=== PATIENT | male | born 1955 | race Caucasian/White ===

== ENCOUNTER → 2016-07-31 | Outpatient (CLI) | payer BC ==
[2016-07-31 12:11] LABS: ALT 41 U/L (21-72); AST 17 U/L (17-59); Alkaline Phosphatase 75 U/L (38-126); Anion Gap 12 mmol/L; Blood Urea Nitrogen 16 mg/dL (9-20); Calcium 9.8 mg/dL (8.4-10.2); Carbon Dioxide 24 mmol/L (22-30); Chloride 107 mmol/L (98-107); Cholesterol 172 mg/dL (<200); Glucose 155 mg/dL (74-99); HDL Cholesterol 57 mg/dL (40-60); Non-African American GFR(MDRD) >60 (>60 ml/min/1.73 sqM); Potassium 4.9 mmol/L (3.5-5.1); Sodium 143 mmol/L (137-145); Total Bilirubin 0.9 mg/dL (0.2-1.3); Total Protein 7.3 g/dL (6.3-8.2); Triglycerides 127 mg/dL (<150)
== END | disposition home or self-care (01) ==
LOC: LABWHC1 11:42
PROVIDERS: ATTEND Internal Medicine Endocrinology, Diabetes & Metabolism
DX: E11.65 Type 2 diabetes mellitus with hyperglycemia (principal)
CPT/HCPCS: 36415; 80053; 80061; 82043

== ENCOUNTER 2016-11-15 12:53 | Emergency (ER) | payer BC, OTHER ==
[2016-11-15 13:15] VITALS: RESP 18; TEMP 98
[2016-11-15] MEDS ORDERED: DIPH,PERTUS(ACELL)TETVAC-LF 0.5 ML VIAL IM ONE (13:25)
[2016-11-15] MEDS ORDERED: ACETAMINOPHEN TAB 325 MG TAB PO STA (13:26)
--- NOTE | 2016-11-15 13:31 | ED ---
Head Injury HPI - General Chief complaint: Head Injury Stated complaint: [facility] Head Lac Time Seen by Provider: 11/15/16 13:02 Source: patient, EMS, RN notes reviewed Mode of arrival: EMS Limitations: no limitations - History of Present Illness Initial comments: Patient is a 61-year-old male presents to the emergency room for evaluation of head injury. Patient states he was using a crank at work and it shot back and hit him on the left side of his forehead. Patient states he doesn't think he lost consciousness. Patient denies nausea. Patient denies dizziness. Patient states he is having 8 out of 10 headache. Patient states his head did begin to bleed. Patient states he's not any blood thinners. Patient states he has not had a tetanus vaccine within the last 5 years. Patient denies changes in vision. Patient denies ear pain or ringing in ears. Patient is having slight neck pain. Patient denies paresthesia in his upper extremities. Patient denies any other injuries during incident. - Related Data Home Medications Medication Instructions Recorded Confirmed Atorvastatin [Lipitor] 20 mg PO HS 11/15/16 11/15/16 Dapagliflozin Propanediol [Farxiga] 10 mg PO DAILY 11/15/16 11/15/16 amLODIPine BESYLATE/BENAZEPRIL 1 cap PO DAILY 11/15/16 11/15/16 [amLODIPine BESYLATE/BENAZEPRIL 5-10 mg] metFORMIN HCL [Metformin HCl] 1,000 mg PO BID 11/15/16 11/15/16 Allergies/Adverse reactions: Allergies Allergy/AdvReac Type Severity Reaction Status Date / Time No Known Allergies Allergy Verified 11/15/16 13:05 Review of Systems ROS Statement: Those systems with pertinent positive or pertinent negative responses have been documented in the HPI. ROS Other: All systems not noted in ROS Statement are negative. Past Medical History Past Medical History: Diabetes Mellitus, Hyperlipidemia, Hypertension History of Any Multi-Drug Resistant Organisms: None Reported Past Surgical History: Appendectomy Past Psychological History: No Psychological Hx Reported Smoking Status: Never smoker Past Alcohol Use History: Occasional Past Drug Use History: None Reported General Exam - General Exam Comments Initial Comments: Sitting in exam room, no acute distress. Limitations: no limitations General appearance: alert, in no apparent distress Expanded Head exam: Present: laceration (1cm laceration over mid left forehead with underlying hematoma) Eye exam: Present: normal appearance, PERRL, EOMI Pupils: Present: normal accommodation ENT exam: Present: normal exam Neck exam: Present: normal inspection Respiratory exam: Present: normal lung sounds bilaterally. Absent: respiratory distress Cardiovascular Exam: Present: regular rate, normal rhythm, normal heart sounds Extremities exam: Present: normal inspection Back exam: Present: normal inspection Neurological exam: Present: alert, oriented X3, CN II-XII intact, normal gait Expanded Patient oriented to: Present: person, place, time Speech: Present: fluid speech Cranial nerves: EOM's Intact: Normal, Facial Sensation: Normal Sensory exam: Upper Extremity Light Touch: Normal, Lower Extremity Light Touch: Normal Motor strength exam: RUE: 5, LUE: 5, RLE: 5, LLE: 5 Eye Response: (4) open spontaneously Motor Response: (6) obeys commands Verbal Response: (5) oriented Psychiatric exam: Present: normal affect, normal mood Skin exam: Present: warm, dry, normal color. Absent: rash Course Vital Signs 11/15/16 11/15/16 13:05 14:42 Temperature 98 F 98 F Pulse Rate 69 70 Respiratory 18 18 Rate Blood Pressure 142/85 137/75 O2 Sat by Pulse 96 98 Oximetry Procedures - Laceration Laceration #1 Consent Obtained: verbal consent Indication: laceration Site: face Size (cm): 1 Description: linear Size of Sutures: other (Dermabond) Patient Tolerated Procedure: well, no complications Medical Decision Making - Medical Decision Making Patient is 61-year-old male presents to the emergency room for evaluation of head injury. Brain and C-spine negative for any acute findings. Patient has no neuro deficits. Laceration repaired with Dermabond. Patient was updated on his tetanus. Advised patient to continue taking Tylenol as needed for pain and to follow-up with primary care provider if symptoms do not improve. Patient states he understands everything that was discussed with him. Return parameters discussed. Case discussed Dr. Turner. - Radiology Data Radiology results: report reviewed, image reviewed Disposition Clinical Impression: Facial laceration, Head injury Disposition: HOME SELF-CARE Condition: Good Instructions: Head Injury (ED), Skin Adhesive Care (ED), Facial Laceration (ED) Additional Instructions: Tylenol as needed for headache. Dermabond will fall off on its own in 5-10 days. Please follow up with primary care provider in 1-2 days. If any new symptom arises or symptoms worsen, return to ER as soon as possible. Referrals: Jason Esteban DO [Primary Care Provider] - 1-2 days Time of Disposition: 14:24
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
[2016-11-15] MEDS ORDERED: TOPICAL SKIN ADHESIVE 1 EACH AMP TOPICAL ONE (14:23)
[2016-11-15 14:43] VITALS: BP 137/75; PULSE 70
== END 2016-11-15 14:42 | disposition home or self-care (01) ==
LOC: EC 12:53
DX: S01.81XA Laceration without foreign body of other part of head, initial encounter (principal); M54.2 Cervicalgia; E11.9 Type 2 diabetes mellitus without complications; E78.5 Hyperlipidemia, unspecified; I10 Essential (primary) hypertension; Z23 Encounter for immunization; Z79.84 Long term (current) use of oral hypoglycemic drugs; Z79.899 Other long term (current) drug therapy; W22.8XXA Striking against or struck by other objects, initial encounter; Y99.0 Civilian activity done for income or pay; Y93.89 Activity, other specified; Y92.69 Other specified industrial and construction area as the place of occurrence of the external cause
CPT/HCPCS: 12011; 70450; 72125; 90471; 90715; 99284

== ENCOUNTER 2018-08-19 18:32 | Emergency (ER) | payer BC ==
[2018-08-19 18:37] VITALS: RESP 18
--- NOTE | 2018-08-19 20:20 | XR ---
EXAMINATION TYPE: XR soft tissue neck DATE OF EXAM: 08/19/2018 COMPARISON: NONE HISTORY: Shortness of breath and neck swelling TECHNIQUE: Frontal and lateral views of the soft tissues of the neck were performed FINDINGS: Nasopharynx and oropharynx appear patent. No prevertebral soft tissue swelling is noted. No supraglottic or infraglottic airway narrowing. Osseous structures are grossly intact. Lung apices ar e well aerated. IMPRESSION: Unremarkable radiographs of the soft tissues of the neck.
[2018-08-19 21:10] LABS: ALT 44 U/L (21-72); AST 24 U/L (17-59); Albumin 3.9 g/dL (3.5-5.0); Alkaline Phosphatase 107 U/L (38-126); Anion Gap 7 mmol/L; Blood Urea Nitrogen 16 mg/dL (9-20); Calcium 9.6 mg/dL (8.4-10.2); Carbon Dioxide 24 mmol/L (22-30); Chloride 109 mmol/L (98-107); Glucose 244 mg/dL (74-99); Potassium 4.6 mmol/L (3.5-5.1); Sodium 140 mmol/L (137-145); Total Bilirubin 0.6 mg/dL (0.2-1.3); Total Protein 6.8 g/dL (6.3-8.2)
[2018-08-19 21:21] LABS: Basophils % (A) 1 %; Eosinophils # (A) 0.2 k/uL (0-0.7); Eosinophils % (A) 3 %; HCT 49.1 % (39.0-53.0); HGB 16.6 gm/dL (13.0-17.5); Lymphocytes # (A) 1.5 k/uL (1.0-4.8); Lymphocytes % (A) 26 %; MCH 31.6 pg (25.0-35.0); MCHC 33.9 g/dL (31.0-37.0); MCV 93.4 fL (80.0-100.0); Monocytes # (A) 0.4 k/uL (0-1.0); Monocytes % (A) 7 %; Neutrophils # (A) 3.6 k/uL (1.3-7.7); Neutrophils % (A) 62 %; Platelet Count 223 k/uL (150-450); RBC 5.26 m/uL (4.30-5.90); RDW 13.1 % (11.5-15.5); WBC 5.8 k/uL (3.8-10.6)
--- NOTE | 2018-08-19 22:07 | ED ---
ENT HPI - General Chief complaint: ENT Stated complaint: Throat swelling Time Seen by Provider: 08/19/18 19:07 Source: patient Mode of arrival: ambulatory Limitations: no limitations - History of Present Illness Initial comments: 63-year-old male patient presents to the emergency department today for evaluation after having an episode of difficulty swallowing and breathing. Patient states that this lasted for several seconds and he became quite concer caden. Patient states since the episode he has now had a sore throat. States that with sleeping he often has choking episodes that nearly caused vomiting. Patient states he has had similar episodes to this in the past but never quite this severe. He denies any fevers or chills with this. Denies any headache, blurred vision, double vision, numbness, tingling, weakness to the extremities. Denies any chest pain or shortness of breath currently. Patient denies any recent rash, abdominal pain, nausea, vomiting, diarrhea, constipation, back pain, numbness, tingling, dizziness, weakness, hematuria, dysuria, urinary urgency, urinary frequency, headache, visual changes, or any other complaints. - Related Data Home Medications Medication Instructions Recorded Confirmed Atorvastatin [Lipitor] 20 mg PO HS 11/15/16 11/15/16 Dapagliflozin Propanediol [Farxiga] 10 mg PO DAILY 11/15/16 11/15/16 amLODIPine BESYLATE/BENAZEPRIL 1 cap PO DAILY 11/15/16 11/15/16 [amLODIPine BESYLATE/BENAZEPRIL 5-10 mg] metFORMIN HCL [Metformin HCl] 1,000 mg PO BID 11/15/16 11/15/16 Previous Rx's Medication Instructions Recorded Famotidine [Pepcid] 20 mg PO DAILY #30 tablet 08/19/18 Allergies Allergy/AdvReac Type Severity Reaction Status Date / Time No Known Allergies Allergy Verified 08/19/18 18:37 Review of Systems ROS Statement: Those systems with pertinent positive or pertinent negative responses have been documented in the HPI. ROS Other: All systems not noted in ROS Statement are negative. Past Medical History Past Medical History: Diabetes Mellitus, Hyperlipidemia, Hypertension History of Any Multi-Drug Resistant Organisms: None Reported Past Surgical History: Appendectomy Past Psychological History: No Psychological Hx Reported Smoking Status: Never smoker Past Alcohol Use History: Occasional Past Drug Use History: None Reported General Exam Limitations: no limitations General appearance: alert, in no apparent distress, other (This is a well-dev eloped, well-nourished adult male patient in no acute distress. Vital signs upon presentation are temperature 98.3F, pulse 88, respirations 18, blood pressure 139/92, pulse ox 98% on room air.) Eye exam: Present: normal appearance, PERRL, EOMI. Absent: scleral icterus, co njunctival injection, periorbital swelling ENT exam: Present: normal exam, normal oropharynx, mucous membranes moist Neck exam: Present: normal inspection, full ROM. Absent: tenderness, meningismus, lymphadenopathy Respiratory exam: Present: normal lung sounds bilaterally. Absent: respiratory distress, wheezes, rales, rhonchi, stridor Cardiovascular Exam: Present: regular rate, normal rhythm, normal heart sounds. Absent: systolic murmur, diastolic murmur, rubs, gallop, clicks Neurological exam: Present: alert, oriented X3, CN II-XII intact Psychiatric exam: Present: normal affect, normal mood Skin exam: Present: warm, dry, intact, normal color. Absent: rash Course Vital Signs 08/19/18 08/19/18 18:34 22:47 Temperature 98.3 F 98.5 F Pulse Rate 88 62 Respiratory 18 18 Rate Blood Pressure 139/92 123/83 O2 Sat by Pulse 98 97 Oximetry Medical Decision Making - Medical Decision Making 63-year-old male patient presented to the emergency department today for evaluation after having an episode where he felt like his throat close he could not breathe and cannot swallow. Patient states this lasted for a few minutes then resolved. States he has had intermittent episodes like this in the past. Physical examination is unremarkable. Examination of the throat was unremarkable. Did perform soft tissue x-rays which showed no acute abnormalities. Did perform CT soft tissue of the neck with contrast showed a polyp on the variculla which may account for his symptoms. Patient also reported frequent nighttime coughing and choking. We will start on Pepcid for possible acid reflux as he does have a history but does not currently take any medications for this. He'll be referred to ENT for follow-up and evaluation. He is instructed of this primary care physician for recheck in 1-2 days. Return parameters discussed in detail. He verbalizes understanding and agrees with this plan. - Lab Data Result diagrams: 08/19/18 20:48 08/19/18 20:48 Lab Results 08/19/18 08/19/18 Range/Units 20:48 20:48 WBC 5.8 (3.8-10.6) k/uL RBC 5.26 (4.30-5.90) m/uL Hgb 16.6 (13.0-17.5) gm/dL Hct 49.1 (39.0-53.0) % MCV 93.4 (80.0-100.0) fL MCH 31.6 (25.0-35.0) pg MCHC 33.9 (31.0-37.0) g/dL RDW 13.1 (11.5-15.5) % Plt Count 223 (150-450) k/uL Neutrophils % 62 % Lymphocytes % 26 % Monocytes % 7 % Eosinophils % 3 % Basophils % 1 % Neutrophils # 3.6 (1.3-7.7) k/uL Lymphocytes # 1.5 (1.0-4.8) k/uL Monocytes # 0.4 (0-1.0) k/uL Eosinophils # 0.2 (0-0.7) k/uL Basophils # 0.0 (0-0.2) k/uL Sodium 140 (137-145) mmol/L Potassium 4.6 (3.5-5.1) mmol/L Chloride 109 H (98-107) mmol/L Carbon Dioxide 24 (22-30) mmol/L Anion Gap 7 mmol/L BUN 16 (9-20) mg/dL Creatinine 0.67 (0.66-1.25) mg/dL Est GFR (CKD-EPI)AfAm >90 (>60 ml/min/1.73 sqM) Est GFR (CKD-EPI)NonAf >90 (>60 ml/min/1.73 sqM) Glucose 244 H (74-99) mg/dL Calcium 9.6 (8.4-10.2) mg/dL Total Bilirubin 0.6 (0.2-1.3) mg/dL AST 24 (17-59) U/L ALT 44 (21-72) U/L Alkaline Phosphatase 107 (38-126) U/L Total Protein 6.8 (6.3-8.2) g/dL Albumin 3.9 (3.5-5.0) g/dL - Radiology Data Radiology results: report reviewed, image reviewed X-rays soft tissue of the neck was obtained. Report was reviewed in its entirety. Impression by Dr. Zavala shows unremarkable radiograph the soft tissues of the neck. CT soft tissue neck with contrast was obtained. Report was reviewed in its entirety. Impression by Dr. Zavala shows no radiopaque foreign body is seen. Ventricular secretions and/or polyp noted. Direct visualization is recommended for further evaluation Disposition Clinical Impression: Polyp of larynx Disposition: HOME SELF-CARE Condition: Good Additional Instructions: Follow up with ENT for further evaluation of your Vallecula Polyp. Take anti- inflammatory medication for symptom relief. Return to the emergency department immediately for any new, worsening, or concerning symptoms. Prescriptions: Famotidine [Pepcid] 20 mg PO DAILY #30 tablet Is patient prescribed a controlled substance at d/c from ED?: No Referrals: Jason Esteban DO [Primary Care Provider] - 1-2 days Eliecer Wang MD [STAFF PHYSICIAN] - 1-2 days Time of Disposition: 22:30
--- NOTE | 2018-08-19 22:11 | CT ---
EXAMINATION TYPE: CT soft tissue neck w con DATE OF EXAM: 08/19/2018 HISTORY: Difficulty swallowing COMPARISON: NONE CT DLP: 321.7 mGycm. Automated Exposure Control for Dose Reduction was Utilized. TECHNIQUE: CT scan of the neck is performed with IV Contrast, patient injected with 100 mL of Isovue 300, axial images are obtained, coronal and sagittal reformatted images are reviewed. FINDINGS: Airway: Polypoid density is seen within the vallecula that could relate to a polyp or secretions. Thi s could be further evaluated with direct visualization. True and false focal cords are unremarkable. Piriform sinuses are also unremarkable. Upper trachea is within normal limits. Nasopharynx and oropha rynx are patent.. Parotid/submandibular glands: Parotid glands and submandibular glands are partially obscured by spray artifact from extensive oral fillings. However there appears to be slight symmetric atrophy of the p arotid glands. Carotid/Vascular Structures: There is a bovine aortic arch. Common carotid arteries, carotid bulbs an d cervical portions of the internal carotid arteries demonstrate no hemodynamically significant steno sis. Vertebral arteries are also patent. Osseous Structures: Mild multilevel degenerative disc disease of the cervical spine is seen with stra ightening of usual cervical lordosis that could relate to muscular sprain/spasm or patient positionin g. Visualized paranasal sinuses and mastoid air cells are well aerated. Other: Dependent biapical atelectasis is subsegmental. IMPRESSION: No radiopaque foreign body is seen. Vallecular secretions and/or polyp. Direct visualization is recom mended for further evaluation.
[2018-08-19 22:48] VITALS: BP 123/83; PULSE 62; TEMP 98.5
== END 2018-08-19 22:51 | disposition home or self-care (01) ==
LOC: EC 18:32
DX: J38.1 Polyp of vocal cord and larynx (principal); R05 Cough; E78.5 Hyperlipidemia, unspecified; I10 Essential (primary) hypertension; E11.9 Type 2 diabetes mellitus without complications; Z79.84 Long term (current) use of oral hypoglycemic drugs; Z79.899 Other long term (current) drug therapy
CPT/HCPCS: 36415; 80053; 85025; 70360; 70491; 99284; Q9967

== ENCOUNTER 2020-02-03 20:34 | Emergency (ER) | payer BC ==
[2020-02-03] MEDS ORDERED: PROPARACAINE 0.5% OPHTH DROPS 15 ML BTL LEFT EYE STA (20:43)
[2020-02-03] MEDS ORDERED: FLUORESCEIN STRIPS 1 MG STRIP LEFT EYE ONE (20:43)
[2020-02-03] MEDS ORDERED: CIPROFLOXACIN 0.3% OPHTH SOLN 5 ML BTL LEFT EYE STA (21:35)
--- NOTE | 2020-02-03 21:37 | ED ---
Eye Problem HPI - General Chief complaint: Eye Problems Stated complaint: L Eye Injury Time Seen by Provider: 02/03/20 20:43 Source: patient Mode of arrival: ambulatory Limitations: no limitations - History of Present Illness Initial comments: 64yo male presenting to the ER today for the cc left eye pain. States using multiple activities today-- including cutting wood, using a bleach spray and moving metal> patietn states he was wearing safety glasses and did not note a specific time when pain began. HE states his eye felt irritated approximately 6+ hour ago and he rinsed it, he states he put a magnet up to it and rinsed it again. He states the eye still felt irritated, blurry and was watering/sensitive to light. Patient has no additional complaints. - Related Data Home Medications Medication Instructions Recorded Confirmed Atorvastatin [Lipitor] 20 mg PO HS 11/15/16 11/15/16 Dapagliflozin Propanediol [Farxiga] 10 mg PO DAILY 11/15/16 11/15/16 amLODIPine BESYLATE/BENAZEPRIL 1 cap PO DAILY 11/15/16 11/15/16 [amLODIPine BESYLATE/BENAZEPRIL 5-10 mg] metFORMIN HCL [Metformin HCl] 1,000 mg PO BID 11/15/16 11/15/16 Previous Rx's Medication Instructions Recorded Famotidine [Pepcid] 20 mg PO DAILY #30 tablet 08/19/18 Ciprofloxacin Ophth Soln [Cipro 1 drops LEFT EYE Q4HR 5 Days #1 02/03/20 0.3% Ophth Soln] bottle Allergies Allergy/AdvReac Type Severity Reaction Status Date / Time No Known Allergies Allergy Verified 02/03/20 20:41 Review of Systems ROS Statement: Those systems with pertinent positive or pertinent negative responses have been documented in the HPI. ROS Other: All systems not noted in ROS Statement are negative. Past Medical History Past Medical History: Diabetes Mellitus, Hyperlipidemia, Hypertension History of Any Multi-Drug Resistant Organisms: None Reported Past Surgical History: Appendectomy Past Psychological History: No Psychological Hx Reported Smoking Status: Never smoker Past Alcohol Use History: Occasional Past Drug Use History: None Reported General Exam - General Exam Comments Initial Comments: General: The patient is awake and alert Eye: +3 mm pupils are equal, round and reactive to light, extra-ocular movements are intact. No nystagmus. There is conjunctival injection of the left eye, no injection of the right eye. No signs of icterus. Ears, nose, mouth and throat: There are moist mucous membranes and no oral lesions. Cornea clear not steamy. IOP OD, 20, OS 19. Upon fluorescein staining there is an area of uptake in the center of the cornea. no foreignbody identified. Neck: The neck is supple, there is no tenderness or JVD. Cardiovascular: There is a regular rate and rhythm. No murmur, rub or gallop is appreciated. Respiratory: Lungs are clear to auscultation, respirations are non-labored, breath sounds are equal. No wheezes, stridor, rales, or rhonchi. Gastrointestinal: Soft, non-distended, non-tender abdomen without masses or organomegaly noted. There is no rebound or guarding present. Musculoskeletal: Normal ROM, no tenderness. Strength 5/5. Sensation intact. Radial pulses equal bilaterally 2+. Neurological: A&O x 3. CN II-XII intact grossly, There are no obvious motor or sensory deficits. Coordination appears grossly intact. Speech is normal. Skin: Skin is warm and dry and no rashes or lesions are noted. Psychiatric: Cooperative, appropriate mood & affect, normal judgment. 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 Resolution of pain with proparacaine. Pt complaining of slight FARRAR. There is area of uptake on cornea. IOP WNL. NO pain to palpation of baptism. Patient will be treated for corneal abrasion as discussed with Dr. Gandara and discharged with ophthalmology follow-up patient is to call Dr. Chowdhury's office tomorrow to schedule appointment in the next 24-48 hours he is to return for worsening symptoms. Patient verbalizes understanding was discharged appearing well Disposition Clinical Impression: Corneal abrasion, Left eye pain Disposition: HOME SELF-CARE Condition: Good Instructions (If sedation given, give patient instructions): Corneal Abrasion (ED) Additional Instructions: Please use medication as discussed. Please follow-up with family doctor in the next 2 days. Please return to emergency room if the symptoms increase or worsen or for any other concerns. Prescriptions: Ciprofloxacin Ophth Soln [Cipro 0.3% Ophth Soln] 1 drops LEFT EYE Q4HR 5 Days #1 bottle Is patient prescribed a controlled substance at d/c from ED?: No Referrals: Jason Esteban DO [Primary Care Provider] - 1-2 days Ubaldo Chowdhury MD [STAFF PHYSICIAN] - 1-2 days Time of Disposition: 21:37
[2020-02-03] MEDS ORDERED: KETOROLAC 15 MG/ML 1 ML VIAL IM STA (21:51)
[2020-02-03 22:22] VITALS: BP 158/78; PULSE 94; RESP 18; TEMP 98.3
== END 2020-02-03 22:20 | disposition home or self-care (01) ==
LOC: EC 20:34
DX: S05.02XA Injury of conjunctiva and corneal abrasion without foreign body, left eye, initial encounter (principal); E11.9 Type 2 diabetes mellitus without complications; E78.5 Hyperlipidemia, unspecified; I10 Essential (primary) hypertension; Z79.84 Long term (current) use of oral hypoglycemic drugs; Z79.899 Other long term (current) drug therapy; X58.XXXA Exposure to other specified factors, initial encounter; Y93.89 Activity, other specified
CPT/HCPCS: 96372; 99283

== ENCOUNTER 2020-06-24 07:42 | Day surgery (SDC) | payer BC ==
[2020-06-17 12:15] VITALS: BMI 31.1
[~2020-06-24 07:42] MED LIST: LACTATED RINGERS 1,000 ML IV SCH; LIDOCAINE 1% (10MG/ML) FOR IV START INTRADERMA PRN
[2020-06-24 08:16] VITALS: RESP 16; TEMP 97.9
[2020-06-24 08:24] LABS: Glucose,Whole Blood 143 mg/dL (75-99)
[2020-06-24] MEDS ORDERED: PROPOFOL 10 MG/ML 20 ML VIAL IV ONE (08:38)
--- NOTE | 2020-06-24 08:39 | P.GSHP ---
History of Present Illness H&P Date: 06/24/20 Chief Complaint: Colon cancer screening Patient here today for colonoscopy. He is unsure when his last colonoscopy was. No bowel complaints. No family history of colon cancer. Past Medical History Past Medical History: Cancer, Diabetes Mellitus, GERD/Reflux, Hyperlipidemia, Hypertension, Osteoarthritis (OA) Additional Past Medical History / Comment(s): hx migraines, hiatal hernia, hx ulcer, skin cancer, History of Any Multi-Drug Resistant Organisms: None Reported Past Surgical History: Appendectomy, Orthopedic Surgery Additional Past Surgical History / Comment(s): tumor removed from left leg, removal of skin cancer, arthroscopy rt knee Past Anesthesia/Blood Transfusion Reactions: No Reported Reaction Smoking Status: Never smoker - Past Family History Father Family Medical History: Cancer Additional Family Medical History / Comment(s): liver Brother(s) Family Medical History: Cancer Daughter(s) Family Medical History: Cancer Medications and Allergies Home Medications Medication Instructions Recorded Confirmed Type Dapagliflozin Propanediol [Farxiga] 10 mg PO DAILY 11/15/16 06/17/20 History amLODIPine BESYLATE/BENAZEPRIL 1 cap PO DAILY 11/15/16 06/17/20 History [amLODIPine BESYLATE/BENAZEPRIL 5-10 mg] metFORMIN HCL [Metformin HCl] 1,000 mg PO BID 11/15/16 06/17/20 History Aspirin [Adult Low Dose Aspirin EC] 81 mg PO DAILY 06/17/20 06/17/20 History Atorvastatin [Lipitor] 40 mg PO HS 06/17/20 06/17/20 History Pioglitazone HCl 15 mg PO DAILY 06/17/20 06/17/20 History Vitamin C(Dose Unknown) 1 tab PO DAILY 06/17/20 06/17/20 History Vitamin D(Dose Unknown) 1 tab PO DAILY 06/17/20 06/17/20 History Zinc(Dose Unknown) 1 tab PO DAILY 06/17/20 06/17/20 History Allergies Allergy/AdvReac Type Severity Reaction Status Date / Time No Known Allergies Allergy Verified 06/24/20 08:13 Surgical - Exam Vital Signs Temp Pulse Resp BP Pulse Ox 97.9 F 70 16 146/87 96 06/24/20 08:12 06/24/20 08:12 06/24/20 08:12 06/24/20 08:12 06/24/20 08:12 Physical exam: General: Well-developed, well-nourished HEENT: Normocephalic, sclerae nonicteric Abdomen: Nontender, nondistended Extremities: No edema Neuro: Alert and oriented Results - Labs Abnormal Lab Results - Last 24 Hours (Table) 06/24/20 Range/Units 08:23 POC Glucose (mg/dL) 143 H (75-99) mg/dL Assessment and Plan (1) Colon cancer screening Narrative/Plan: Will proceed with colonoscopy at this time Current Visit: Yes Status: Acute Code(s): Z12.11 - ENCOUNTER FOR SCREENING FOR MALIGNANT NEOPLASM OF COLON SNOMED Code(s): 173320393
--- NOTE | 2020-06-24 08:52 | P.OP ---
Date of Procedure: 06/24/20 Procedure(s) Performed: PREOPERATIVE DIAGNOSIS: Colon cancer screening POSTOPERATIVE DIAGNOSIS: Normal exam PROCEDURE: Colonoscopy ANESTHESIA: MAC SURGEON: Zeus Kemp M.D. SPECIMENS: None ENDOSCOPIC PROCEDURE: The patient was placed on the endoscopy table in the left decubitus position. The Olympus colonoscope was inserted into the anus and passed under direct visualization to the base of the cecum. The appendiceal orifice was visualized. From that point the scope was slowly withdrawn inspecti ng all surfaces carefully. There were no neoplastic inflammatory or polypoid lesions throughout the cecum, ascending, transverse, descending, sigmoid and rectum. There was no visible diverticulosis noted. Digital rectal examination was normal. The patient was taken to the recovery room in stable condition per anesthesia guidelines. RECOMMENDATIONS: Resume diet. Follow-up colonoscopy 10 years.
[2020-06-24 09:34] VITALS: BP 125/73; PULSE 71
== END 2020-06-24 09:40 | disposition home or self-care (01) ==
LOC: ORWHC2ENDO 07:42
PROVIDERS: ATTEND Surgery
DX: Z12.11 Encounter for screening for malignant neoplasm of colon (principal); I10 Essential (primary) hypertension; E78.5 Hyperlipidemia, unspecified; E11.9 Type 2 diabetes mellitus without complications; K21.9 Gastro-esophageal reflux disease without esophagitis; Z79.82 Long term (current) use of aspirin; Z79.84 Long term (current) use of oral hypoglycemic drugs; Z79.899 Other long term (current) drug therapy; Z80.9 Family history of malignant neoplasm, unspecified; Z98.890 Other specified postprocedural states; G43.909 Migraine, unspecified, not intractable, without status migrainosus; Z85.828 Personal history of other malignant neoplasm of skin; M19.90 Unspecified osteoarthritis, unspecified site; Z80.8 Family history of malignant neoplasm of other organs or systems
CPT/HCPCS: G0121; J2704; 45378

== ENCOUNTER → 2023-10-25 | Outpatient (CLI) | payer BC ==
--- NOTE | 2023-10-26 19:32 | MR ---
EXAMINATION TYPE: MR Prostate wo/w con DATE OF EXAM: 10/25/2023 6:57 AM COMPARISON: None. CLINICAL INDICATION:Male, 68 years old with history of R97.20 ELEVATED PROSTATE SPECIFIC ANTIGEN [PSA ]; Elevated PSA. TECHNIQUE: Multi-planar, multi-sequence imaging of the pelvis is performed prior to and following the uncomplicated administration of bolus intravenous gadolinium. CONTRAST: 8.5 Gadavist Interpretive Criteria: PI-RADS v2.1 SERUM PSA: 5.15 on 09/12/2023 1.6 01/07/2022 SURGICAL PATHOLOGY: No data available. FINDINGS: Prostatic dimensions: 4.4 x 4.8 x 4.5 cm. Ellipsoid Volume:49.76 (PSA density=0.10 ng/mL/mL) CENTRAL GLAND (Central and Transition Zones/CZ+TZ): Multiple bilateral, heterogenous appearing hypertrophic stromal nodules, without suspicious lesion. (PI-RADS 2) PERIPHERAL ZONE (PZ): No evidence of masslike abnormality, or localized perfusional hypervascularity, to further suggest a focus of clinically significant prostate cancer. (PI-RADS 2) SEMINAL VESICLES (SV): Symmetric and unremarkable. PERIPROSTATIC TISSUES: Unremarkable. LYMPH NODES: No enlarged pelvic lymph node. REMAINING PELVIS: Bladder wall is within normal limits given distention. No abnormal free or organized intrapelvic fluid collection. No pathologic bowel dilation or mural thickening. Right fat containing inguinal hernia OSSEOUS STRUCTURES: No suspicious osseous abnormality. Fixation changes in the lower spine with susceptibility artifact. IMPRESSION: 1. No specific features for high-risk prostate cancer. Maximum PI-RADS score: 2. 2. Mild BPH, estimated gland volume 49.76 mL. 3. No suspicious osseous lesion. No lymphadenopathy. No evidence of prostate adenocarcinoma involving the periprostatic tissues.
== END | disposition home or self-care (01) ==
LOC: RADMRIMAIN 05:58
PROVIDERS: ATTEND Urology
DX: N40.0 Benign prostatic hyperplasia without lower urinary tract symptoms (principal); R97.20 Elevated prostate specific antigen [PSA]
CPT/HCPCS: 72197; A9585